=== PATIENT | male | born 1985 | race Caucasian/White ===

== ENCOUNTER 2018-08-26 21:03 | Emergency (ER) | payer OTHER ==
[2018-08-26 21:11] VITALS: BP 126/81; PULSE 101; TEMP 99; BMI 20.5
[2018-08-26] MEDS ORDERED: ACETAMINOPHEN 1000 MG/100 ML VIAL (NON FORMULARY) IVPB ONE (23:03)
[2018-08-26] MEDS ORDERED: SODIUM CHLORIDE 0.9% 500 ML INFUS.BAG IV ONE (23:03)
--- NOTE | 2018-08-26 23:03 | PDOC ---
History of Present Illness - General History Source: Patient Exam Limitations: No Limitations - History of Present Illness Initial Comments: 08/26/18 23:49 The patient is a 33 year old male, with no significant PMH, who presents to the emergency department today with non bilious non bloody vomiting that began last week. The patient states he vomited last week after eating from a restaurant. Throughout the week, patient start to endorse associated symptoms of cough, 1 episode of vomiting last night, fever and nausea. The patient states he thinks he has the flu and symptoms progressively worsened . The patient denies chest pain, shortness of breath, headache and dizziness.Denies chills and constipation.Denies dysuria, frequency, urgency and hematuria. Allergies: NKDA Past surgical history: hernia repair appendectomy Social history: Everyday smoker ( 1 cigg per day) denies alcohol and recreational drug use. PCP: None reported Documentation prepared by Dustin Velazquez, acting as medical technologist microbiology for Tayla Red MD. <Dustin Velazquez - Last Filed: 08/26/18 23:49> <Tayla Red - Last Filed: 08/27/18 01:44> - General Chief Complaint: Vomiting/Diarrhea Stated Complaint: VOMITING/FEVER Time Seen by Provider: 08/26/18 23:03 Past History <Dustin Velazquez - Last Filed: 08/26/18 23:49> - Past Medical History CVA: No COPD: No - Surgical History GI Surgery: Yes (hernia repair appendectomy) - Suicide/Smoking/Psychosocial Hx Smoking History: Current some day smoker Number of Cigarettes Smoked Daily: 1 Information on smoking cessation initiated: Yes Hx Alcohol Use: No Drug/Substance Use Hx: No <Tayla Red - Last Filed: 08/27/18 01:44> - Past Medical History Allergies/Adverse Reactions: Allergies Allergy/AdvReac Type Severity Reaction Status Date / Time No Known Allergies Allergy Verified 08/26/18 21:08 Review of Systems - Review of Systems Able to Perform ROS?: Yes Comments:: 08/26/18 23:51 GENERAL/CONSTITUTIONAL: +Fever. No chills. No weakness. HEAD, EYES, EARS, NOSE AND THROAT: No change in vision. No ear pain or discharge. No sore throat. CARDIOVASCULAR: No chest pain or shortness of breath. RESPIRATORY: No cough, wheezing, or hemoptysis. GASTROINTESTINAL: +Diarrhea and +Vomiting. GENITOURINARY: No dysuria, frequency, or change in urination. MUSCULOSKELETAL: No joint or muscle swelling or pain. No neck or back pain. SKIN: No rash NEUROLOGIC: No headache, vertigo, loss of consciousness, or change in strength/ sensation. ENDOCRINE: No increased thirst. No abnormal weight change. HEMATOLOGIC/LYMPHATIC: No anemia, easy bleeding, or history of blood clots. ALLERGIC/IMMUNOLOGIC: No hives or skin allergy. <Dustin Velazquez - Last Filed: 08/26/18 23:49> *Physical Exam - Vital Signs Last Vital Signs Temp Pulse Resp BP Pulse Ox 99 F 101 H 18 126/81 99 08/26/18 21:08 08/26/18 21:08 08/26/18 21:08 08/26/18 21:08 08/26/18 21:08 - Physical Exam Comments: 08/26/18 23:52 GENERAL: The patient is in no acute distress. HEAD: Normal with no signs of trauma. EYES: PERRLA, EOMI, sclera anicteric, conjunctiva clear. ENT: Ears normal, nares patent, oropharynx clear without exudates. Moist mucous membranes. NECK: Normal range of motion, supple without lymphadenopathy, JVD, or masses. LUNGS: Breath sounds equal, clear to auscultation bilaterally. No wheezes, and no crackles. HEART:Regular rate and rhythm, normal S1 and S2 without murmur, rub or gallop. ABDOMEN:+Increased bowel sounds Soft, nontender. No guarding, norebound. No masses palpable. EXTREMITIES: Normal range of motion, no edema. No clubbing or cyanosis. No erythema, or tenderness. NEUROLOGICAL: Cranial nerves II through XII grossly intact. Normal speech. No focal neurological deficits. MUSCULOSKELETAL: Back non-tender to palpation, no CVA tenderness SKIN: Warm, Dry, normal turgor, no rashes or lesions noted. <Dustin Velazquez - Last Filed: 08/26/18 23:49> - Vital Signs Last Vital Signs Temp Pulse Resp BP Pulse Ox 99 F 101 H 18 126/81 99 08/26/18 21:08 08/26/18 21:08 08/26/18 21:08 08/26/18 21:08 08/26/18 21:08 <Tayla Red - Last Filed: 08/27/18 01:44> ED Treatment Course - LABORATORY CBC & Chemistry Diagram: 08/26/18 23:20 08/26/18 23:20 - ADDITIONAL ORDERS Additional order review: 08/26/18 23:20 RBC 5.22 MCV 92.3 MCHC 34.3 RDW 12.9 MPV 7.7 Neutrophils % 74.7 Lymphocytes % 16.1 Monocytes % 8.3 Eosinophils % 0.4 Basophils % 0.5 <Dustin Velazquez - Last Filed: 08/26/18 23:49> - LABORATORY CBC & Chemistry Diagram: 08/26/18 23:20 08/26/18 23:20 <Tayla Red - Last Filed: 08/27/18 01:44> Medical Decision Making - Medical Decision Making 08/26/18 23:30 Pt has normal CBC. Chem and flu swab pending. 08/27/18 00:06 Chem normal and flu negative. Pt is getting hydrated. He will be stable for d/c once he receives his IV tylenol and completes his saline hydration. <Tayla Red - Last Filed: 08/27/18 01:44> *DC/Admit/Observation/Transfer - Attestations Scribe Attestion: 08/26/18 23:53 Documentation prepared by Dustin Velazquez, acting as medical technologist microbiology for Tayla Red MD. <Dustin Velazquez - Last Filed: 08/26/18 23:49> - Discharge Dispostion Decision to Admit order: No <Tayla Red - Last Filed: 08/27/18 01:44> Diagnosis at time of Disposition: Viral gastroenteritis - Discharge Dispostion Disposition: HOME Condition at time of disposition: Stable - Patient Instructions Printed Discharge Instructions: DI for Viral Gastroenteritis -- Adult - Post Discharge Activity Forms/Work/School Notes: Back to Work
[2018-08-26 23:28] LABS: BASO % 0.5 % (0-2.0); EOS % 0.4 % (0-4.5); HEMATOCRIT 48.2 % (35.4-49); HEMOGLOBIN 16.6 GM/dL (11.7-16.9); LYMPH % 16.1 % (8-40); MCH 31.7 pg (25.7-33.7); MCHC 34.3 g/dl (32.0-35.9); MEAN CELL VOLUME 92.3 fl (80-96); MEAN PLT VOLUME 7.7 fl (7.5-11.1); MONO % 8.3 % (3.8-10.2); NEUT % 74.7 % (42.8-82.8); PLATELET COUNT 253 K/MM3 (134-434); RBC 5.22 M/mm3 (4.00-5.60); RDW 12.9 % (11.9-15.9); WHITE BLOOD COUNT 8.1 K/mm3 (4.0-10.0)
[2018-08-26 23:50] LABS: ALBUMIN 4.6 g/dl (3.4-5.0); ALK PHOS 127 U/L (45-117); ANION GAP 7 MMOL/L (8-16); BILIRUBIN,TOTAL 0.6 mg/dL (0.2-1); BLOOD UREA NITROGEN 15 mg/dL (7-18); CALCIUM 9.3 mg/dL (8.5-10.1); CHLORIDE 99 mmol/L (98-107); CO2 28 mmol/L (21-32); CREATININE 1.1 mg/dL (0.55-1.3); GLUCOSE,RANDOM 103 mg/dL (74-106); POTASSIUM 3.9 mmol/L (3.5-5.1); SGOT/AST 24 U/L (15-37); SGPT/ALT 29 U/L (13-61); SODIUM 134 mmol/L (136-145); TOT PROT 8.6 g/dl (6.4-8.2)
[2018-08-26] MEDS ORDERED: ACETAMINOPHEN INJECTION 100 ML IVPB ONE (23:55)
== END 2018-08-27 01:50 | disposition home or self-care (01) ==
LOC: JER 21:03
PROC: 3E033NZ Introduction of Analgesics, Hypnotics, Sedatives into Peripheral Vein, Percutaneous Approach (ICD-10-PCS; principal; 2018-08-26)
DX: A08.4 Viral intestinal infection, unspecified (principal); B97.89 Other viral agents as the cause of diseases classified elsewhere; F17.210 Nicotine dependence, cigarettes, uncomplicated
CPT/HCPCS: 36415; 80053; 85025; 87804; 96374; 99281-25; J0131

== ENCOUNTER 2018-09-06 11:43 | Emergency (ER) | payer OTHER ==
[2018-09-06 11:49] VITALS: TEMP 98; BMI 22.1
--- NOTE | 2018-09-06 11:53 | PDOC ---
History of Present Illness - General History Source: Patient Exam Limitations: No Limitations <Fanta oJn - Last Filed: 09/06/18 13:33> <Darrell Garber - Last Filed: 09/06/18 15:11> - General Chief Complaint: Syncope/Near Syncope Stated Complaint: RAPID RESPONSE Time Seen by Provider: 09/06/18 11:53 - History of Present Illness Initial Comments: 09/06/18 13:03 The patient is a 33-year-old male, with no past medical history, who presents to the ED s/p syncopal episode while having blood drawn today at an outpatient facility. The patient was went to visit his handkerchief folder, Dr. Roger, regarding RUQ pain. Imaging that was taken revealed lesions on his liver so the patient was sent to have blood drawn. During the process, the patient became dizzy, nauseous, hot, and lost consciousness. He reports a similar episode 1 year ago when having his blood drawn. He denies any chest pain, palpitations, or shortness of breath. He denies any fevers, chills, vomiting, diarrhea, or constipation. Denies any urinary symptoms. Allergies: NKA Social History: Reports occasional tobacco and alcohol use. Denies any drug use. Surgical History: Appendectomy, hernia repair. PCP: Dr. Valentina Hernández (Fanta Jon) Past History <Fanta Jon - Last Filed: 09/06/18 13:33> - Past Medical History CVA: No COPD: No Other medical history: liver problem? - Surgical History Appendectomy: Yes GI Surgery: Yes (hernia repair appendectomy) - Suicide/Smoking/Psychosocial Hx Smoking History: Current some day smoker Number of Cigarettes Smoked Daily: 2 Information on smoking cessation initiated: No Hx Alcohol Use: No Drug/Substance Use Hx: No <Darrell Garber - Last Filed: 09/06/18 15:11> - Past Medical History Allergies/Adverse Reactions: Allergies Allergy/AdvReac Type Severity Reaction Status Date / Time No Known Allergies Allergy Verified 08/26/18 21:08 Home Medications: Ambulatory Orders NK [No Known Home Medication] 09/06/18 Review of Systems - Review of Systems Able to Perform ROS?: Yes <Fanta Jon - Last Filed: 09/06/18 13:33> <Darrell Garber - Last Filed: 09/06/18 15:11> - Review of Systems Comments:: 09/06/18 13:04 CONSTITUTIONAL: No fever, no chills, no fatigue EYES: No visual changes ENT: No ear pain, no sore throat CARDIOVASCULAR: (+)Syncope. No chest pain, no palpitations RESPIRATORY: No cough, no SOB GI: (+)Nausea. No abdominal pain, no vomiting, no constipation, no diarrhea GENITOURINARY: No dysuria, no frequency, no hematuria MUSKULOSKELETAL: No back pain, no joint pain, no myalgias SKIN: No rash NEURO: (+)Dizziness. No headache (Fanta Jon) *Physical Exam <Fanta Jon - Last Filed: 09/06/18 13:33> <Darrell Garber - Last Filed: 09/06/18 15:11> - Vital Signs Last Vital Signs Temp Pulse Resp BP Pulse Ox 98 F 72 18 107/69 97 09/06/18 11:47 09/06/18 11:47 09/06/18 11:47 09/06/18 11:47 09/06/18 11:47 - Physical Exam Comments: 09/06/18 13:10 CONSTITUTIONAL: Well-appearing; well-nourished; in no apparent distress HEAD: Normocephalic; atraumatic EYES: PERRL; EOM intact ENMT: External appears normal; normal oropharynx NECK: Supple; non-tender; no cervical lymphadenopathy CARD: Normal S1, S2; no murmurs, rubs, or gallops RESP: Normal chest excursion with respiration; breath sounds clear and equal bilaterally; no wheezes, rhonchi, or rales ABD: Soft, non-distended; non-tender; no palpable organomegaly, no palpable hernias EXT: Normal ROM in all four extremities; non-tender to palpation; distal pulses intact SKIN: Warm, dry, no rash NEURO: No focal neurological deficiencies. (Fanta Jon) Heart Score/ECG Review <Fanta Jon - Last Filed: 09/06/18 13:33> <Darrell Garber - Last Filed: 09/06/18 15:11> - ECG Intrepretation Comment:: 09/06/18 13:34 EKG was reviewed by Dr. Garber at 11:40. Normal sinus rhythm at 69 bpm. Normal ECG. (Fanta Jon) Medical Decision Making <Fanta Jon - Last Filed: 09/06/18 13:33> <Darrell Garber - Last Filed: 09/06/18 15:11> - Medical Decision Making 09/06/18 12:59 Patient is well-appearing 33-year-old male who was undergoing blood draw at an outpatient lab facility when he developed signs and symptoms of vasovagal syncope. In the ER, patient is awake and alert, well-appearing, with normal stable vital signs without evidence of orthostasis. EKG shows no evidence of acute ischemia or underlying dysrhythmia. CBC reveals no evidence of significant anemia. CMP reveals elevated LFTs for which the patient was being evaluated in the first place. Patient requested by mouth hydration. Will observe. Likely discharge. 09/06/18 15:10 Patient reassessed. Patient is resting comfortably, ambulates without difficulty and ate a meal in the ED. CBC reveals no evidence of significant anemia. Vasovagal syncope suspected. We'll discharge. (Darrell Garber) *DC/Admit/Observation/Transfer <Fanta Jon - Last Filed: 09/06/18 13:33> <Darrell Garber - Last Filed: 09/06/18 15:11> Diagnosis at time of Disposition: Syncope Qualifiers: Syncope type: vasovagal syncope Qualified Code(s): R55 - Syncope and collapse - Discharge Dispostion Disposition: HOME Condition at time of disposition: Stable - Referrals Referrals: Valentina Hernández [Primary Care Provider] - - Patient Instructions Printed Discharge Instructions: DI for Syncope in Adults (Fainting) - Attestations Scribe Attestion: 09/06/18 13:11 Documentation prepared by Fanta Jon, acting as medical equipment repair technician for Darrell Garber MD. (Fanta Jon) Physician Attestion: 09/06/18 12:59 The documentation was prepared by the scribe under my direct supervision. I have reviewed the documentation which correctly represents the findings, medical decision-making and critical action taken by me. (Darrell Garber)
--- NOTE | 2018-09-06 12:29 | EKG ---
Test Reason : Blood Pressure : / mmHG Vent. Rate : 069 BPM Atrial Rate : 069 BPM P-R Int : 158 ms QRS Dur : 086 ms QT Int : 370 ms P-R-T Axes : 052 058 036 degrees QTc Int : 396 ms NORMAL SINUS RHYTHM NORMAL ECG NO PREVIOUS ECGS AVAILABLE Confirmed by EDITA RODNEY, DANIEL ([id number]) on 09/06/2018 12:28:32 PM Referred By: Confirmed By:DANIEL KOHLER MD
[2018-09-06 16:02] VITALS: BP 113/69; PULSE 86
== END 2018-09-06 16:02 | disposition home or self-care (01) ==
LOC: JER 11:43
DX: R55 Syncope and collapse (principal); F17.210 Nicotine dependence, cigarettes, uncomplicated
CPT/HCPCS: 93005; 93010; 99282-25

== ENCOUNTER 2019-04-23 21:02 | Emergency (ER) | payer OTHER ==
[2019-04-23 21:10] VITALS: BP 132/89; PULSE 95; TEMP 98.4; BMI 22.1
[2019-04-23] MEDS ORDERED: SODIUM CHLORIDE 1,000 ML IV STA (21:12)
[2019-04-23] MEDS ORDERED: ONDANSETRON 4 MG/2 ML VIAL IVPUSH ONE (21:12)
--- NOTE | 2019-04-23 21:12 | PDOC ---
Rapid Medical Evaluation Chief Complaint: Nausea/Vomiting Time Seen by Provider: 04/23/19 21:11 Medical Evaluation: Allergies Allergy/AdvReac Type Severity Reaction Status Date / Time No Known Allergies Allergy Verified 04/23/19 21:10 Vital Signs Temp Pulse Resp BP Pulse Ox 98.4 F 95 H 18 132/89 100 04/23/19 21:07 04/23/19 21:07 04/23/19 21:07 04/23/19 21:07 04/23/19 21:07 04/23/19 21:11 I have performed a brief in-person evaluation of this patient. The patient presents with a chief complaint of: vomiting Pertinent physical exam findings:stable and in NAD, non-focal I have ordered the following:labs The patient will proceed to the ED for further evaluation.
[2019-04-23 21:55] LABS: BASO % 0.4 % (0-2.0); EOS % 0.4 % (0-4.5); HEMATOCRIT 46.9 % (35.4-49); MCH 31.5 pg (25.7-33.7); MEAN CELL VOLUME 92.6 fl (80-96); MEAN PLT VOLUME 7.8 fl (7.5-11.1); MONO % 3.2 % (3.8-10.2); PLATELET COUNT 297 K/MM3 (134-434); RBC 5.07 M/mm3 (4.00-5.60); RDW 12.9 % (11.9-15.9); WHITE BLOOD COUNT 17.6 K/mm3 (4.0-10.0)
[2019-04-23 22:19] LABS: PLATELET ESTIMATE ADEQUATE
[2019-04-23 22:25] LABS: ALBUMIN 4.8 g/dl (3.4-5.0); BILIRUBIN,TOTAL 1.1 mg/dL (0.2-1); BLOOD UREA NITROGEN 21.2 mg/dL (7-18); CALCIUM 9.8 mg/dL (8.5-10.1); CREATININE 1.1 mg/dL (0.55-1.3); TOT PROT 8.2 g/dl (6.4-8.2)
[2019-04-23] MEDS ORDERED: ONDANSETRON 4 MG/2 ML VIAL ONE (22:48)
--- NOTE | 2019-04-23 22:56 | PDOC ---
History of Present Illness - General Chief Complaint: Nausea/Vomiting Stated Complaint: FOOD POISONING Time Seen by Provider: 04/23/19 21:11 - History of Present Illness Initial Comments: HPI: 33yo M with no reported PMH presenting with nausea, vomiting, and diarrhea. States he had [place] food today. Started having symptoms around 5:15pm with 7 episodes of bilious vomiting and 7 episodes of brown watery diarrhea. has similar nausea and vomiting, but no diarrhea. No one else ate the same food as him. Reporting mild epigastric pain. Has not been able to tolerate po intake. Past surgical history includes hernia repair x 2 and appendectomy. No fevers, chills, chest pain, or shortness of breath. PCP: Dr. Hernández ROS: Constitutional: no fever, no chills HEENT: no throat pain, no dysphagia Cardiovascular: no chest pain, no palpitations Respiratory: no cough, no shortness of breath Gastrointestinal: +abdominal pain, +vomiting Genitourinary: no dysuria, no hematuria Musculoskeletal: no myalgia, no arthralgia Skin: no rash, no itching Neurologic: no headache, no weakness PE: General: Awake, alert, and fully oriented, in no acute distress Head: No signs of trauma Eyes: EOMI, sclera anicteric ENT: Moist mucus membranes Neck: Normal ROM, supple Lungs: Lungs clear, Normal breath sounds Cardio: Regular rhythm, S1 and S2 present Abdomen: Mild ttp in epigastrium. Soft, nondistended. No guarding, no rebound, no masses. No CVA tenderness Extremities: Normal range of motion, Distal pulses present SKIN: Warm, Dry, normal turgor Neurologic: Cranial nerves II through XII grossly intact. Normal speech ED Course/MDM: DDX including but not limited to gastroenteritis, viral illness, food poisoning Labs Zofran Fluids Pepcid CBC WBC 17.6 K/mm3 (4.0-10.0) H 04/23/19 21:42 RBC 5.07 M/mm3 (4.00-5.60) 04/23/19 21:42 Hgb 16.0 GM/dL (11.7-16.9) 04/23/19 21:42 Hct 46.9 % (35.4-49) 04/23/19 21:42 MCV 92.6 fl (80-96) 04/23/19 21:42 MCH 31.5 pg (25.7-33.7) 04/23/19 21:42 MCHC 34.0 g/dl (32.0-35.9) 04/23/19 21:42 RDW 12.9 % (11.9-15.9) 04/23/19 21:42 Plt Count 297 K/MM3 (134-434) D 04/23/19 21:42 MPV 7.8 fl (7.5-11.1) 04/23/19 21:42 Absolute Neuts (auto) 15.9 K/mm3 (1.5-8.0) H 04/23/19 21:42 Total Counted 100 04/23/19 21:42 Neutrophils % 90.0 % (42.8-82.8) H D 04/23/19 21:42 Neutrophils % (Manual) 88.0 % (42.8-82.8) H 04/23/19 21:42 Band Neutrophils % 3.0 % 04/23/19 21:42 Lymphocytes % 6.0 % (8-40) L D 04/23/19 21:42 Lymphocytes % (Manual) 6.0 % (8-40) L 04/23/19 21:42 Monocytes % 3.2 % (3.8-10.2) L 04/23/19 21:42 Monocytes % (Manual) 3 % (3.8-10.2) L 04/23/19 21:42 Eosinophils % 0.4 % (0-4.5) 04/23/19 21:42 Basophils % 0.4 % (0-2.0) 04/23/19 21:42 Nucleated RBC % 0 % (0-0) 04/23/19 21:42 Platelet Estimate Adequate 04/23/19 21:42 Platelet Comment No clumping noted 04/23/19 21:42 Leukocytosis CMP Sodium 139 mmol/L (136-145) 04/23/19 21:42 Potassium 4.0 mmol/L (3.5-5.1) 04/23/19 21:42 Chloride 106 mmol/L (98-107) 04/23/19 21:42 Carbon Dioxide 27 mmol/L (21-32) 04/23/19 21:42 Anion Gap 6 MMOL/L (8-16) L 04/23/19 21:42 BUN 21.2 mg/dL (7-18) H 04/23/19 21:42 Creatinine 1.1 mg/dL (0.55-1.3) 04/23/19 21:42 Est GFR (CKD-EPI)AfAm 103.13 04/23/19 21:42 Est GFR (CKD-EPI)NonAf 88.98 04/23/19 21:42 Random Glucose 116 mg/dL (74-106) H 04/23/19 21:42 Calcium 9.8 mg/dL (8.5-10.1) 04/23/19 21:42 Total Bilirubin 1.1 mg/dL (0.2-1) H 04/23/19 21:42 AST 25 U/L (15-37) 04/23/19 21:42 ALT 31 U/L (13-61) 04/23/19 21:42 Alkaline Phosphatase 112 U/L (45-117) 04/23/19 21:42 Total Protein 8.2 g/dl (6.4-8.2) 04/23/19 21:42 Albumin 4.8 g/dl (3.4-5.0) 04/23/19 21:42 Lipase 167 U/L (73-393) 04/23/19 21:42 Electrolytes unremarkable Normal lipase No transaminitis Cr normal 04/23/19 22:56 Patient requesting to leave AMA before workup complete. Patient is of sound mind and has capacity to make decisions. Benefits/risks explained to patient and they voiced understanding. Patient decided to leave against medical advice. To sign AMA form. IV removed 04/24/19 00:25 Patient left prior to signing AMA form 04/24/19 00:43 Past History - Past Medical History Allergies/Adverse Reactions: Allergies Allergy/AdvReac Type Severity Reaction Status Date / Time No Known Allergies Allergy Verified 04/23/19 21:10 Home Medications: Ambulatory Orders NK [No Known Home Medication] 09/06/18 CVA: No COPD: No - Surgical History Appendectomy: Yes GI Surgery: Yes (hernia repair appendectomy) - Psycho Social/Smoking Cessation Hx Smoking History: Current every day smoker Have you smoked in the past 12 months: Yes Number of Cigarettes Smoked Daily: 4 Information on smoking cessation initiated: No Hx Alcohol Use: No Drug/Substance Use Hx: Yes *Physical Exam - Vital Signs Last Vital Signs Temp Pulse Resp BP Pulse Ox 98.4 F 95 H 18 132/89 100 04/23/19 21:07 04/23/19 21:07 04/23/19 21:07 04/23/19 21:07 04/23/19 21:07 ED Treatment Course - LABORATORY CBC & Chemistry Diagram: 04/23/19 21:42 04/23/19 21:42 - ADDITIONAL ORDERS Additional order review: Laboratory Results 04/23/19 21:42 Sodium 139 Potassium 4.0 Chloride 106 Carbon Dioxide 27 Anion Gap 6 L BUN 21.2 H Creatinine 1.1 Est GFR (CKD-EPI)AfAm 103.13 Est GFR (CKD-EPI)NonAf 88.98 Random Glucose 116 H Calcium 9.8 Total Bilirubin 1.1 H AST 25 ALT 31 Alkaline Phosphatase 112 Total Protein 8.2 Albumin 4.8 04/23/19 21:42 RBC 5.07 MCV 92.6 MCHC 34.0 RDW 12.9 MPV 7.8 Neutrophils % 90.0 H D Lymphocytes % 6.0 L D Monocytes % 3.2 L Eosinophils % 0.4 Basophils % 0.4 Discharge - Discharge Information Problems reviewed: Yes Clinical Impression/Diagnosis: Nausea & vomiting Qualifiers: Vomiting type: bilious vomiting Qualified Code(s): R11.14 - Bilious vomiting Condition: Stable Disposition: AGAINST MEDICAL ADVICE - Follow up/Referral Referrals: Valentina Hernández [Primary Care Provider] - Abdelrahman Roger MD [Staff Physician] - - Patient Discharge Instructions - Post Discharge Activity
--- NOTE | 2019-04-23 22:57 | PDOC ---
Attending Attestation - Resident Resident Name: Socorro Rodriguez - ED Attending Attestation I have performed the following: I have examined & evaluated the patient, The case was reviewed & discussed with the resident, I agree w/resident's findings & plan - HPI HPI: 04/23/19 23:42 see resident hpi - Physicial Exam PE: 04/23/19 23:42 agree with resident exam - Medical Decision Making 04/23/19 23:43 33-year-old male with vomiting and diarrhea as well as epigastric discomfort that began after vomiting Patient does have a leukocytosis but on reexam after Pepcid and Zofran as well as IV fluids has a nontender abdomen and states he feels better Plan for chest x-ray to rule out Boerhaave syndrome and likely DC home to 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
[2019-04-23] MEDS ORDERED: FAMOTIDINE 20 MG/50 ML IVPB 20 MG/50 ML MG IVPB ONE ×2 (23:09→23:17)
== END 2019-04-24 01:45 | disposition left against medical advice (07) ==
LOC: JER 21:02
PROC: 3E033GC Introduction of Other Therapeutic Substance into Peripheral Vein, Percutaneous Approach (ICD-10-PCS; principal; 2019-04-23)
PROC: 3E033GC Introduction of Other Therapeutic Substance into Peripheral Vein, Percutaneous Approach (ICD-10-PCS; 2019-04-23)
DX: R11.14 Bilious vomiting (principal); F17.210 Nicotine dependence, cigarettes, uncomplicated
CPT/HCPCS: 36415; 80053; 83690; 85025; 99282-25; J7030

== ENCOUNTER 2020-06-26 14:09 | Emergency (ER) | payer OTHER ==
[2020-06-26 14:21] VITALS: BP 156/105; PULSE 78; TEMP 98.5; BMI 25.6
== END 2020-06-26 14:51 | disposition home or self-care (01) ==
LOC: JERFT 14:09
DX: H60.501 Unspecified acute noninfective otitis externa, right ear (principal)
CPT/HCPCS: 99282-25